=== PATIENT | male | born 2000 | race Native Hawaiian/Other Pacific Islander ===

== ENCOUNTER 2023-08-04 14:51 | Emergency (ER) | payer OTHER ==
[~2023-08-04] VITALS: Ht 182.9 cm; Wt 61.7 kg
[2023-08-04 14:51] VITALS: TEMP 98.6
[2023-08-04 15:01] LABS: PLATELET COUNT 334 K/uL (142-355)
[2023-08-04 15:20] LABS: POTASSIUM 3.4 mmol/L (3.6-5.2)
[2023-08-04 18:04] VITALS: BP 124/78
== END 2023-08-04 18:04 | disposition home or self-care (01) ==
LOC: ED 14:51
PROVIDERS: Family Medicine
DX: R52 Pain, unspecified (principal); F41.9 Anxiety disorder, unspecified; M79.10 Myalgia, unspecified site; F19.10 Other psychoactive substance abuse, uncomplicated
CPT/HCPCS: 80053; 80307; 82550; 84484; 85027; 93005; 96361; 96365; 99284; J1885